=== PATIENT | male | born 1990 | race Caucasian/White ===

== ENCOUNTER 2018-01-20 16:51 | Emergency (ER) | payer SELFPAY ==
[~2018-01-20] VITALS: Ht 193 cm; Wt 101.9 kg
[~2018-01-20 16:51] MED LIST: COLACE100 MG PO; DULOXETINE HCL60 MG PO; METHYLPHENIDATE20 M1 PO; OXYCODONE HCL30 MG PO; OXYMORPHONE HCL20 MG PO; PANTOPRAZOLE SO40 MG PO
[2018-01-20 17:45] LABS: HEMATOCRIT 41.9 % (38.0-50.0); HEMOGLOBIN 14.7 G/DL (12.5-16.6); MCH 30.6 PG (29.0-34.0); MCHC 35.1 G/DL (30.0-36.0); MCV 87.1 FL (86-99); PLATELET COUNT 272 K/uL (156-360); RBC DIS.WIDTH-CV 12.7 % (11.8-14.6); RBC DIS.WIDTH-SD 40.4 % (39-53); RED BLOOD COUNT 4.81 M/uL (4.00-5.50); WHITE BLOOD COUNT 5.8 K/uL (4.1-10.2)
[2018-01-20 17:54] LABS: ALBUMIN 4.3 g/dL (3.2-4.8); CHLORIDE 105 mEq/L (99-109); POTASSIUM 3.7 mEq/L (3.7-5.4); SODIUM 142 mEq/L (136-147)
[2018-01-20 17:56] LABS: GLUCOSE 89 mg/dL (70-99)
[2018-01-20 17:57] LABS: TOTAL PROTEIN 7.6 g/dL (6.4-8.3)
[2018-01-20 17:58] LABS: TOTAL BILIRUBIN 0.2 mg/dL (0.0-1.0)
[2018-01-20 18:00] LABS: ALKALINE PHOSPHATASE 84 IU/L (3-129); CREATININE 0.9 mg/dL (0.6-1.3); GFR ESTIMATE (CALCULATED) > 59 mL/min/ (58.99-99999)
[2018-01-20 18:01] LABS: UREA NITROGEN (BUN) 8 mg/dL (9-23)
[2018-01-20 18:02] LABS: AST (GOT) 17 IU/L (2-34)
[2018-01-20 18:03] LABS: ALT (GPT) 16 IU/L (3-49)
[2018-01-20 19:55] LABS: APPEARANCE CLEAR ((CLEAR)); BILIRUBIN NEGATIVE; BLOOD NEGATIVE; COLOR STRAW ((YELLOW)); GLUCOSE (STRIP) NEGATIVE; KETONES NEGATIVE; LEUKOCYTES SMALL; NITRITE NEGATIVE; PROTEIN (STRIP) NEGATIVE; SPECIFIC GRAVITY 1.005 (1.000-1.030); UROBILINOGEN 0.2 MG/DL (0.2-1.0)
[2018-01-20 20:01] LABS: BACTERIA NONE SEEN /HPF; EPITHELIAL CELLS NONE SEEN /HPF; MUCUS NONE SEEN /LPF; RED BLOOD CELLS 0-5 /HPF (0-5); UCUL ADDED? NO; WHITE BLOOD CELLS 0-5 /HPF (0-5)
[2018-01-20] MEDS ORDERED: BENTYL20 MG PO (20:56)
[2018-01-20 21:06] VITALS: BP 129/84
== END 2018-01-20 21:06 | disposition home or self-care (01) ==
LOC: EME 16:51
DX: R10.31 Right lower quadrant pain (principal); F17.200 Nicotine dependence, unspecified, uncomplicated
CPT/HCPCS: 74176; 80053; 81003; 85027; 99281; 99284; J1885